=== PATIENT | male | born 1975 | race Caucasian/White ===

== ENCOUNTER 2024-12-23 05:07 | Inpatient (IN) | payer OTHER ==
[~2024-12-23] VITALS: Ht 182.9 cm; Wt 95.4 kg
[2024-12-23 06:36] LABS: PLATELET COUNT (AUTO) 286 K/uL (150-450); RED BLOOD CELL COUNT(AUTO) 4.05 MIL/uL (4.50-5.90); RED CELL DISTRIBUTION WIDTH 14.3 % (11.5-14.5); WHITE BLOOD COUNT (AUTO) 7.1 K/uL (4.5-11.0)
[2024-12-23 06:54] LABS: SODIUM SERUM 139 mmol/L (136-145)
[2024-12-23 06:56] LABS: APPEARANCE,URINE CLEAR (CLEAR); GLUCOSE, URINE (UA) NEGATIVE (NEGATIVE); LEUKOCYTE ESTERASE ,URINE NEGATIVE (NEGATIVE); NITRATE,URINE NEGATIVE (NEGATIVE); OCCULT BLOOD,URINE NEGATIVE (NEGATIVE); SPECIFIC GRAVITIY, URINE 1.013 (1.003-1.030)
[2024-12-23 06:56] LABS: CALCIUM, TOTAL 8.7 mg/dL (8.8-10.5); CREATININE 1.02 mg/dL (0.60-1.30); GLOMERULAR FILTR. RATE CALC > 60 mL/min (>60); GLUCOSE,RANDOM 82 mg/dL (70-110)
[2024-12-23 06:57] LABS: UREA NITROGEN, BLOOD 14 mg/dL (7-18)
[2024-12-23] MEDS: ONDANSETRON HCL 4 MG/2 ML VIAL IVP ONE (07:08)
[2024-12-23] MEDS ORDERED: MORPHINE SULFATE 2 MG/ML SYRINGE IVP PRN (08:30)
[2024-12-23] MEDS: DOCUSATE SODIUM 100 MG CAPSULE PO SCH (09:00)
[2024-12-23] MEDS: SODIUM CHLORIDE 0.9% 1,000 ML IV ONE (09:25)
[2024-12-23] MEDS: PANTOPRAZOLE SODIUM 40 MG/VIAL IVP SCH (10:52)
[2024-12-23 16:00] VITALS: BP 112/63; PULSE 76; RESP 16; TEMP 97.8; O2SAT 99
[2024-12-23 19:15] VITALS: BP 110/75; PULSE 60; RESP 18; TEMP 97.9; O2SAT 100
[2024-12-23 22:47] LABS: PH,URINE DRUG SCREEN 6.5 (5.0-8.0)
[2024-12-23 22:55] LABS: ALCOHOL, URINE DRUG SCREEN NEGATIVE (NEGATIVE); AMPHET/METH SCREEN,URINE POSITIVE (NEGATIVE); BARBITURATE SCREEN, URINE NEGATIVE (NEGATIVE); CANNABINOID SCREEN,URINE NEGATIVE (NEGATIVE); COCAINE SCREEN,URINE NEGATIVE (NEGATIVE); METHADONE SCREEN, URINE NEGATIVE (NEGATIVE)
[2024-12-24 03:54] VITALS: BP 130/86; PULSE 61; RESP 18; TEMP 97.9; O2SAT 99
[2024-12-24] MEDS: ONDANSETRON HCL 4 MG/2 ML VIAL IVP PRN (20:14)
[2024-12-24] MEDS: ACETAMINOPHEN 325 MG TABLET PO PRN (20:14)
[2024-12-24 20:24] VITALS: BP 99/58; PULSE 62; RESP 18; TEMP 98.4; O2SAT 98
[2024-12-25 04:30] VITALS: BP 116/86; PULSE 62; RESP 18; TEMP 97.5; O2SAT 99
[2024-12-25 07:59] VITALS: BP 107/76; PULSE 61; RESP 18; TEMP 97.9; O2SAT 99
[2024-12-25] MEDS ORDERED: ACET-2247 PO (10:13)
== END 2024-12-25 16:28 | DRG 395 ==
LOC: EMS 05:12 → EDH 08:20 → 6N 15:12
PROVIDERS: ADMIT Internal Medicine; ATTEND Internal Medicine
DX: K42.9 Umbilical hernia without obstruction or gangrene (principal); F15.90 Other stimulant use, unspecified, uncomplicated; Z96.611 Presence of right artificial shoulder joint; Z68.28 Body mass index [BMI] 28.0-28.9, adult; R63.0 Anorexia
CPT/HCPCS: 74176; 80048; 80307; 81003; 83690; 85025; 93005; 96361; 96374; 96375; 99285; J2405; J2470; 36415-L1; 36415-TC